=== PATIENT | male | born 1985 | race Hispanic/Latino ===

== ENCOUNTER 2017-09-09 23:53 | Inpatient (IN) | payer SELFPAY ==
[2017-09-10] MEDS ORDERED: NA CHLORIDE 0.9% 1,000 ML ONE ×2 (00:53→02:31)
[2017-09-10] MEDS ORDERED: ONDANSETRON 4 MG/2 ML VIAL ONE (00:53)
[2017-09-10] MEDS ORDERED: KETOROLAC 30 MG/ML INJ ONE (00:53)
[2017-09-10 01:16] LABS: Urine Blood 1+ (NEG); Urine Glucose NEGATIVE (NEG); Urine Protein NEGATIVE (NEG)
[2017-09-10 01:19] LABS: Absolute Monocytes 1.3 K/uL (0.1-1.3); Absolute Neutrophil 16.3 K/uL (1.8-8.0); Basophils % 0.1 % (0-1.3); Eosinophils % 0.2 % (0-4.4); Hematocrit 40.9 % (39.6-49.0); Lymphocytes % 5.6 % (15.3-44.8); MCH 31.9 pg (27.0-35.0); MCV 91.3 fL (80-100); MPV 9.6 fL (7.6-11.3); Monocytes % 7.2 % (3.3-12.3); RBC Red Blood Cell Count 4.48 M/uL (4.33-5.43)
[2017-09-10 01:26] LABS: Urine Bacteria <20 /HPF (NONE SEEN); Urine Culture Reflex Order NOT NEEDED
[2017-09-10 01:34] LABS: Albumin 3.9 g/dL (3.4-5.0); Bilirubin Direct 0.1 mg/dL (0-0.2); Bilirubin Total 0.7 mg/dL (0.2-1.0); Potassium 3.5 mmol/L (3.5-5.1); Protein, Total 7.7 g/dL (6.4-8.2)
[2017-09-10 01:42] LABS: Blood Morphology Comment NOT SEEN (NOT SEEN); Platelet Estimate ADEQ
--- NOTE | 2017-09-10 02:22 | ER ---
Nurse's Notes [facility] Name: Doug Coronel Age: 32 yrs Sex: Male : 1985 Arrival Date: 09/09/2017 Time: 23:54 Bed 25 Private MD: Diagnosis: Diverticular disease of large intestine without perforation or abscess Presentation: 09/10 00:09 Presenting complaint: Patient states: he started having left lower abdominal pain bb yesterday but pain has gotten worse since this morning he has vomited x 3 today, pain is intermittent and is cramping denies dysuria, denies fever, denies diarrhea. Transition of care: patient was not received from another setting of care. Onset of symptoms was September 08, 2017. Risk Assessment: Do you want to hurt yourself or someone else? Patient reports no desire to harm self or others. Initial Sepsis Screen: Does the patient meet any 2 criteria? No. Patient's initial sepsis screen is negative. Does the patient have a suspected source of infection? No. Patient's initial sepsis screen is negative. Care prior to arrival: None. 00:09 Method Of Arrival: Ambulatory bb 00:09 Acuity: YOLI 3 bb Historical: - Allergies: 00:11 No Known Allergies; bb - Home Meds: 00:11 None [Active]; bb - PMHx: 00:11 None; bb - PSHx: 00:11 None; bb - Immunization history:: Adult Immunizations up to date. - Social history:: Smoking status: Patient uses tobacco products, smokes one-half pack cigarettes per day, Patient uses alcohol, occasionally. Patient/guardian denies using street drugs. - Ebola Screening: : No symptoms or risks identified at this time. Screenin:11 Abuse screen: Denies threats or abuse. Nutritional screening: No deficits noted. tl3 Tuberculosis screening: No symptoms or risk factors identified. Fall Risk None identified. Assessment: 00:09 General: Appears uncomfortable, well groomed, well developed, well nourished, Behavior tl3 is calm, cooperative, appropriate for age. Pain: Complains of pain in left upper quadrant and left lower quadrant Pain currently is 9 out of 10 on a pain scale. Neuro: Level of Consciousness is awake, alert, obeys commands, Oriented to person, place, time, situation, Appropriate for age. Cardiovascular: Patient's skin is warm and dry. Respiratory: Airway is patent Respiratory effort is even, unlabored, Respiratory pattern is regular, symmetrical. GI: Bowel sounds present X 4 quads. Abd is soft Abdomen is tender to palpation in left lower quadrant. GI: Reports vomiting, since this am 3 times. : Urine is clear. EENT: No signs and/or symptoms were reported regarding the EENT system. Derm: No signs and/or symptoms reported regarding the dermatologic system. Musculoskeletal: No signs and/or symptoms reported regarding the musculoskeletal system. 02:30 Reassessment: Patient is alert, oriented x 3, equal unlabored respirations, skin bb warm/dry/pink. IV site intact, patent. 03:46 Reassessment: pt appears to be sleeping, eyes closed, resp unlabored, IV site intact, bb patent with fluids infusing. Awaiting admission orders. Family at bedside. Vital Signs: 00:11 BP 139 / 86; Pulse 104; Resp 16 S; Temp 98.6(O); Pulse Ox 99% on R/A; Weight 86.18 kg bb (R); Height 5 ft. 39 in. (251.46 cm) (R); 00:11 BP 139 / 86; Pulse 102; Resp 18; Temp 98.6; Pulse Ox 99% on R/A; tl3 03:00 BP 130 / 79; Pulse 95; Resp 18; Pulse Ox 100% on R/A; Pain 0/10; mg2 00:11 Body Mass Index 13.63 (86.18 kg, 251.46 cm) bb ED Course: 09/09 23:54 Patient arrived in ED. ds1 09/10 00:09 Mitali Aden, RN is Primary Nurse. tl3 00:11 Triage completed. bb 00:11 Arm band placed on Patient placed in an exam room, on a stretcher, on pulse oximetry. bb Family accompanied patient. 00:11 Patient has correct armband on for positive identification. Bed in low position. Call tl3 light in reach. Side rails up X 1. Adult w/ patient. Pulse ox on. NIBP on. 00:11 No provider procedures requiring assistance completed. tl3 00:11 Urine collected: clean catch specimen, clear. tl3 00:27 Edison Walter MD is Attending Physician. gs 00:55 Inserted saline lock: 20 gauge in left antecubital area, using aseptic technique. Blood mg2 collected. 01:[address] via wheelchair. kw1 02:04 CT completed. Patient tolerated procedure well. Patient moved back from CT. kw1 02:06 CT Stone Protocol In Process Unspecified. EDMI 02:20 Jessee Cristina MD is Hospitalizing Provider. gs 02:35 First set of blood cultures drawn R AC. Second set of blood cultures drawn L AC. bb 03:00 Patient admitted, IV remains in place. mg2 Administered Medications: 00:54 Drug: Zofran 4 mg Route: IVP; Site: left antecubital; mg2 01:44 Follow up: Response: No adverse reaction; Nausea is decreased mg2 00:54 Drug: TORadol 15 mg Route: IVP; Site: left antecubital; mg2 01:43 Follow up: Response: No adverse reaction; Marked relief of symptoms mg2 00:55 Drug: NS 0.9% 1000 ml Route: IV; Rate: 1 bolus; Site: left antecubital; mg2 01:44 Follow up: Response: No adverse reaction; IV Status: Completed infusion mg2 02:44 Drug: ceFAZolin 2 grams Route: IVPB; Infused Over: 30 mins; Site: left antecubital; mg2 02:59 Follow up: IV Status: Infusion continued upon admission mg2 02:44 Drug: NS 0.9% 1000 ml Route: IV; Rate: 125 ml/hr; Site: left antecubital; mg2 02:58 Follow up: IV Status: Infusion continued upon admission mg2 Outcome: 02:22 Decision to Hospitalize by Provider. gs 02:[address] [facility] accompanied by [facility], via wheelchair, room 426, with chart, Report mg2 called to Nurse Lulu 02:59 Condition: stable 02:59 Instructed on the need for admit. 04:12 Patient left the ED. bb Signatures: Dispatcher [employer] EDMI Marlyn Tsang ds1 Feli Pugh RN RN bb Edison Walter MD MD Carolina Richard kw1 Mitali Aden RN RN tl3 Alo Vidal RN RN mg2
--- NOTE | 2017-09-10 02:22 | EDPHYS ---
Physician Documentation [facility] Name: Doug Coronel Age: 32 yrs Sex: Male : 1985 Arrival Date: 09/09/2017 Time: 23:54 Bed 25 Private MD: ED Physician Edison Walter HPI: 09/10 02:17 This 32 yrs old Male presents to ER via Ambulatory with complaints of gs Abdominal Pain. 02:17 The patient presents with abdominal pain in the left lower quadrant. Onset: The gs symptoms/episode began/occurred yesterday. The symptoms do not radiate. Associated signs and symptoms: Pertinent positives: nausea and vomiting, Pertinent negatives: fever. The symptoms are described as crampy. Modifying factors: The symptoms are alleviated by nothing, the symptoms are aggravated by nothing. Severity of pain: At its worst the pain was moderate in the emergency department the pain is unchanged. The patient has not experienced similar symptoms in the past. Historical: - Allergies: 00:11 No Known Allergies; bb - Home Meds: 00:11 None [Active]; bb - PMHx: 00:11 None; bb - PSHx: 00:11 None; bb - Immunization history:: Adult Immunizations up to date. - Social history:: Smoking status: Patient uses tobacco products, smokes one-half pack cigarettes per day, Patient uses alcohol, occasionally. Patient/guardian denies using street drugs. - Ebola Screening: : No symptoms or risks identified at this time. ROS: 02:17 All other systems are negative. gs Exam: 02:17 Head/Face: Normocephalic, atraumatic. Eyes: Pupils equal round and reactive to light, gs extra-ocular motions intact. Lids and lashes normal. Conjunctiva and sclera are non-icteric and not injected. Cornea within normal limits. Periorbital areas with no swelling, redness, or edema. ENT: Nares patent. No nasal discharge, no septal abnormalities noted. Tympanic membranes are normal and external auditory canals are clear. Oropharynx with no redness, swelling, or masses, exudates, or evidence of obstruction, uvula midline. Mucous membranes moist. Neck: Trachea midline, no thyromegaly or masses palpated, and no cervical lymphadenopathy. Supple, full range of motion without nuchal rigidity, or vertebral point tenderness. No Meningismus. Chest/axilla: Normal chest wall appearance and motion. Nontender with no deformity. No lesions are appreciated. 02:17 Respiratory: Lungs have equal breath sounds bilaterally, clear to auscultation and percussion. No rales, rhonchi or wheezes noted. No increased work of breathing, no retractions or nasal flaring. Back: No spinal tenderness. No costovertebral tenderness. Full range of motion. Skin: Warm, dry with normal turgor. Normal color with no rashes, no lesions, and no evidence of cellulitis. MS/ Extremity: Pulses equal, no cyanosis. Neurovascular intact. Full, normal range of motion. Neuro: Awake and alert, GCS 15, oriented to person, place, time, and situation. Cranial nerves II-XII grossly intact. Motor strength 5/5 in all extremities. Sensory grossly intact. Cerebellar exam normal. Normal gait. 02:17 Constitutional: The patient appears alert, awake. 02:17 Cardiovascular: Rate: tachycardic, Rhythm: regular, Pulses: no pulse deficits are appreciated. 02:17 Abdomen/GI: Palpation: moderate abdominal tenderness, in the left lower quadrant. Vital Signs: 00:11 BP 139 / 86; Pulse 104; Resp 16 S; Temp 98.6(O); Pulse Ox 99% on R/A; Weight 86.18 kg bb (R); Height 5 ft. 39 in. (251.46 cm) (R); 00:11 BP 139 / 86; Pulse 102; Resp 18; Temp 98.6; Pulse Ox 99% on R/A; tl3 03:00 BP 130 / 79; Pulse 95; Resp 18; Pulse Ox 100% on R/A; Pain 0/10; mg2 00:11 Body Mass Index 13.63 (86.18 kg, 251.46 cm) bb MDM: 00:43 Patient medically screened. gs 02:17 Differential diagnosis: bowel obstruction, diverticulitis, non-specific abd pain, gs pancreatitis. Data reviewed: vital signs, nurses notes. Response to treatment: the patient's symptoms have markedly improved after treatment, and as a result, I will admit patient. 09/10 00:40 Order name: Urine Dipstick--Ancillary (enter results); Complete Time: 02:11 rg2 09/10 00:44 Order name: Basic Metabolic Panel; Complete Time: 02:11 09/10 00:44 Order name: CBC with Diff; Complete Time: 02:11 09/10 00:44 Order name: Creatinine for Radiology; Complete Time: 02:11 09/10 00:44 Order name: Hepatic Function; Complete Time: 02:11 09/10 00:44 Order name: Lipase; Complete Time: 02:11 09/10 00:44 Order name: Urine Microscopic Only; Complete Time: 02:11 09/10 00:44 Order name: CT Stone Protocol 09/10 01:22 Order name: Manual Differential; Complete Time: 02:11 EDMS 09/10 02:12 Order name: Blood Culture* 09/10 00:44 Order name: IV Saline Lock; Complete Time: 00:54 09/10 00:44 Order name: Labs collected and sent; Complete Time: 00:54 09/10 00:44 Order name: Urine Dipstick-Ancillary (obtain specimen); Complete Time: 00:54 09/10 03:01 Order name: CONS Physician Consult EDMS Administered Medications: 00:54 Drug: Zofran 4 mg Route: IVP; Site: left antecubital; mg2 01:44 Follow up: Response: No adverse reaction; Nausea is decreased mg2 00:54 Drug: TORadol 15 mg Route: IVP; Site: left antecubital; mg2 01:43 Follow up: Response: No adverse reaction; Marked relief of symptoms mg2 00:55 Drug: NS 0.9% 1000 ml Route: IV; Rate: 1 bolus; Site: left antecubital; mg2 01:44 Follow up: Response: No adverse reaction; IV Status: Completed infusion mg2 02:44 Drug: ceFAZolin 2 grams Route: IVPB; Infused Over: 30 mins; Site: left antecubital; mg2 02:59 Follow up: IV Status: Infusion continued upon admission mg2 02:44 Drug: NS 0.9% 1000 ml Route: IV; Rate: 125 ml/hr; Site: left antecubital; mg2 02:58 Follow up: IV Status: Infusion continued upon admission mg2 Disposition: 09/10/17 02:22 Hospitalization ordered by Jessee Cristina for Inpatient Admission. Preliminary diagnosis is Diverticular disease of large intestine without perforation or abscess. - Bed requested for Telemetry/MedSurg (Inpatient). - Status is Inpatient Admission. bb - Condition is Stable. - Problem is new. - Symptoms have improved. UTI on Admission? No Signatures: Dispatcher [employer] EDTX Erica Joya RN RN Feli Pugh RN RN bb Starr, Gregory, MD MD gs Gardose, Michele, RN RN mg2 Corrections: (The following items were deleted from the chart) 02: 02:22 Hospitalization Ordered by Jessee Cristina MD for Inpatient Admission. Preliminary diagnosis is Diverticular disease of large intestine without perforation or abscess. Bed requested for Telemetry/MedSurg (Inpatient). Status is Inpatient Admission. Condition is Stable. Problem is new. Symptoms have improved. UTI on Admission? No. 04:12 02:26 09/10/2017 02:22 Hospitalization Ordered by Jessee Cristina MD for Inpatient bb Admission. Preliminary diagnosis is Diverticular disease of large intestine without perforation or abscess. Bed requested for Telemetry/MedSurg (Inpatient). Status is Inpatient Admission. Condition is Stable. Problem is new. Symptoms have improved. UTI on Admission? No.
[2017-09-10] MEDS ORDERED: CEFAZOLIN SODIUM 1 GM/VIAL ONE (02:31)
[2017-09-10] MEDS ORDERED: NA CHLORIDE 0.9% 100 ML IV ONE (02:32)
--- NOTE | 2017-09-10 04:08 | P.HP ---
Certification for Inpatient Patient admitted to: Inpatient With expected LOS: >2 Midnights Practitioner: I am a practitioner with admitting privileges, knowledge of patient current condition, hospital course, and medical plan of care. Services: Services provided to patient in accordance with Admission requirements found in Title 42 Section 412.3 of the Code of Federal Regulations Patient History Date of Service: 09/10/17 Reason for admission: diverticulitis History of Present Illness: Mr Coley is a 32 years old male with quite benign past medical history, who start about 2 days ago with abdominal pain. The pain was localized on left lower quadrant, it was like cramps, 8/10 of intensity, associated with nausea and vomiting. He denied fever or chills. No diarrhea. He has never had this kind of pain in the past. He drinks on the weekends about 6 packs beers daily, he also smokes every day. In ED lab work was remarkable for leukocytosis 18.7K with bandemia 5%. CT abd/pelvis remarkable for diverticulitis with microperforation, no abscess seen. Allergies No Known Allergies Allergy (Unverified 09/10/17 02:49) Home medications list reviewed: Yes - Past Medical/Surgical History Past Medical History: Reviewed- Non-Contributory Past Surgical History: Reviewed- Non-Contributory - Family History Family History: Reviewed- Non-Contributory - Social History Smoking Status: Current every day smoker Counseled patient to stop smoking for: less than 10 minutes Smoking therapy provided: Yes Patient receptive to therapy: Yes Alcohol use: Yes CD- Drugs: No Place of Residence: Home Review of Systems 10-point ROS is otherwise unremarkable Physical Examination - Physical Exam General: Alert, In no apparent distress HEENT: Atraumatic, PERRLA, Mucous membr. moist/pink, EOMI, Sclerae nonicteric Neck: Supple, 2+ carotid pulse no bruit, No LAD, Without JVD or thyroid abnormality Respiratory: Clear to auscultation bilaterally, Normal air movement Cardiovascular: Regular rate/rhythm, Normal S1 S2 Gastrointestinal: Hypoactive, Distended, Tenderness (LLQ to palpation) Musculoskeletal: No tenderness Integumentary: No rashes Neurological: Normal speech, Normal strength at 5/5 x4 extr, Normal tone, Normal affect Lymphatics: No axilla or inguinal lymphadenopathy - Studies Laboratory Data (last 24 hrs) 09/10/17 00:50: Creatinine 1.00 09/10/17 00:50: WBC 18.7 H, Hgb 14.3, Hct 40.9, Plt Count 243 09/10/17 00:50: Sodium 139, Potassium 3.5, BUN 14, Creatinine 1.00, Glucose 121 H, Total Bilirubin 0.7, AST 26, ALT 89 H, Alkaline Phosphatase 78, Lipase 118 Assessment and Plan - Problems (Diagnosis) (1) Acute diverticulitis Current Visit: Yes Status: Acute (2) Alcohol abuse Current Visit: Yes Status: Acute (3) Tobacco abuse Current Visit: Yes Status: Acute - Plan The patient will be admitted to the hospital due to acute diverticulitis, it is complicated with microperforation. Will start IV Cipro and Flagyl. Will consult Dr Nuno for evaluation and recommendations. - Advance Directives Does patient have a Living Will: No Does patient have a Durable POA for Healthcare: No - Code Status/Comfort Care Code Status Assessed: Yes Code Status: Full Code
[2017-09-10] MEDS ORDERED: ACETAMINOPHEN 500 MG TAB PO PRN (04:22)
[2017-09-10] MEDS ORDERED: ONDANSETRON 4 MG/2 ML VIAL IV PRN (04:22)
[2017-09-10] MEDS: NA CHLORIDE 0.9% 1,000 ML IV SCH ×2 (04:22→16:11)
[2017-09-10] MEDS ORDERED: Morphine 2 MG/2 ML SYR IV PRN (04:22)
[2017-09-10 04:42] VITALS: BMI 34.7
[2017-09-10] MEDS: CIPROFLOXACIN 400mg IV 400 MG/200 ML BAG IV SCH ×3 (05:29→20:45)
[2017-09-10] MEDS: METRONIDAZOLE 500mg IVPB 500 MG/100 ML BAG IV SCH ×3 (05:29→16:11)
[2017-09-10] MEDS ORDERED: KCL 20 MEQ/100 mL IVPB 20 MEQ/100 ML BAG IV SCH (07:00)
[2017-09-10] MEDS: MORPHINE 4 MG/ML SYR IV PRN ×2 (07:38→20:46)
--- NOTE | 2017-09-10 08:21 | RAD REPORT ---
EXAM DESCRIPTION: CT - Stone Protocol - 09/10/2017 4:41 am CLINICAL HISTORY: Flank pain. ABD PAIN COMPARISON: No comparisons TECHNIQUE: Axial images were obtained without oral or IV contrast. Lack of contrast limits solid org an and vascular assessment. The [id number] spans the entirety of the system partially obscuring uppermost abdomen and lung bases. Coronal reformatted images were obtained and reviewed. All CT scans are performed using dose optimization technique as appropriate and may include automated exposure control or mA/KV adjustment according to patient size. FINDINGS: The lower lung allred are clear. Advanced fatty liver. Spleen is normal. The pancreas and adrenal glands are normal. No pathologic lym phadenopathy in the abdomen or pelvis. No urinary tract stones or obstructive uropathy. 8 cm length of the sigmoid colon shows moderate pericolonic inflammatory changes. Several diverticula are present in the region. Tiny extraluminal air collections are seen in the mesocolon surrounding t his region of the sigmoid colon. No abscess. Normal appendix noted.No bowel obstruction or significan t free intraperitoneal air. No fracture or aggressive marrow lesion. IMPRESSION: 8 cm length of sigmoid colon shows [id number] acute inflammatory changes most comp atible with acute diverticulitis. No evidence of peridiverticular abscess. Prominent fatty liver.
[2017-09-10] MEDS: NICOTINE 21 MG/PAT TD SCH (08:45)
--- NOTE | 2017-09-10 12:08 | CON ---
Date of Consultation: 09/10/2017 Brief History Of Present Illness: The patient is a 32-year-old male, who presents with appr oximately 1-day history of suprapubic and now left lower quadrant abdominal pain. He states that the initial pain began almost 2 days ago with very mild achiness and crampiness, but got significantly w orse yesterday. He did not have any new food exposures. No sick contacts. No recent travel. He lopez s had no trauma to the area. He states the pain became more crampy, 8/10 in intensity, associated wi th some nausea and vomiting. No fever, no chills. No diarrhea. He had normal bowel function. Roosevelt lemus had a similar episode before in the past. He drinks a 6 pack of beer on the weekends and he smokes approximately a pack a day for 15 years. His pain os significantly improved at this time as compare d with his admission to the emergency room. Past Medical History: Negative. Past Surgical History: He has had an abscess drainage of the perineum. Allergies: NO KNOWN DRUG ALLERGIES. Medications: None. Social History: Six pack of beer on the weekend per da. Smoking, [id number] history of cigarettes . He has used recreational drugs including cocaine and marijuana, but quit 2 years ago and has not h ad a recreational drugs since then. He works in a machine shop. Review of Systems: A 10-point review of systems other than HPI denies. Physical Examination: Vital Signs: At the time of my examination, his BMI was approximately 34. Blood pressure was 120/58 , pulse is 101, respiratory rate 20, and temperature 97.5. General: He is awake, alert, and oriented. Psychiatric: He is appropriate and conversive. HEENT: Normocephalic. Hiss sclerae anicteric. Mucous membranes are moist. Oropharynx clear. Neck: Supple. No JVD. Chest: Normal expansion and excursion. Cardiovascular: Regular rate and rhythm. During my exam it is approximately 92. Abdomen: Soft. Positive left lower quadrant tenderness to palpation. No focal peritonitis. No joe ound. No guarding. Mild suprapubic tenderness to palpation as well. Extremities: No clubbing, cyanosis, edema. Skin: Warm and dry. Laboratory Data: Reveals a white blood cell count of 18.7, hemoglobin is 14.3, hematocrit of 40.9, p latelet count 243, and neutrophils are 86.9%. His sodium was 139, potassium 3.5, chloride 107, carbo n dioxide 25, BUN 14, creatinine 1.0, glucose 121, lactic acid 1.9. Total bilirubin 0.7, direct comp onent 0.1. AST 26, ALT 89, alkaline phosphatase is 78, lipase is 118. The UA shows 1+ blood and 5-1 0 red blood cells only, otherwise essentially negative. He had a CT scan performed of the abdomen an d pelvis. The official dictation is an 8 cm length of sigmoid colon shows moderate pericolonic infla mmatory changes. Several diverticula are present in this region. Tiny extraluminal air collections are seen in the mesocolon surrounding this region of the sigmoid colon. No abscess. Normal appendix is noted. No bowel obstruction or significant free intraperitoneal air. He has a prominent fatty l iver. Assessment And Plan: This is a 32-year-old male, who presents with acute diverticulitis with micrope rforation. 1.IV fluid hydration. 2.May start clear liquid diet at this time. 3.Antibiotic coverage, Levaquin, Flagyl recommended. 4.Serial abdominal exams. 5.I explained the risks, benefits, and alternatives of operative versus nonoperative management. At this time, we will proceed with nonoperative management including, but not limited to bleeding, infe ction, damage to surrounding tissue, need for further operation or procedures. The patient agrees to proceed as indicated. Thank you for this interesting consultation. KATHY/JADEN Voice ID: [id number] Report ID: [id number]
[2017-09-11] MEDS: METRONIDAZOLE 500mg IVPB 500 MG/100 ML BAG IV SCH ×2 (00:06→09:22)
[2017-09-11] MEDS: NA CHLORIDE 0.9% 1,000 ML IV SCH ×3 (00:22→10:22)
[2017-09-11] MEDS: MORPHINE 4 MG/ML SYR IV PRN (03:16)
[2017-09-11 04:35] LABS: Absolute Lymphocytes (CBC) 1.4 K/uL (0.7-4.9); Absolute Monocytes 0.8 K/uL (0.1-1.3); Absolute Neutrophil 9.5 K/uL (1.8-8.0); Basophils % 0.2 % (0-1.3); Eosinophils % 0.4 % (0-4.4); Hematocrit 39.5 % (39.6-49.0); Lymphocytes % 12.3 % (15.3-44.8); MCH 31.7 pg (27.0-35.0); MCV 92.5 fL (80-100); MPV 9.5 fL (7.6-11.3); Monocytes % 6.7 % (3.3-12.3); RBC Red Blood Cell Count 4.27 M/uL (4.33-5.43)
[2017-09-11 04:39] VITALS: TEMP 97.2
[2017-09-11 04:51] LABS: BUN Blood Urea Nitrogen 7 mg/dL (7-18); Bicarbonate 24 mmol/L (21-32); Glucose Level 99 mg/dL (74-106); Magnesium 2.2 mg/dL (1.8-2.4); Potassium 3.6 mmol/L (3.5-5.1); Sodium Level 141 mmol/L (136-145)
[2017-09-11] MEDS ORDERED: POTASSIUM 25 MEQ EFFERV TAB PO ONE (05:30)
[2017-09-11] MEDS ORDERED: TRAMADOL HCL 50 MG TAB PO PRN (07:19)
[2017-09-11] MEDS ORDERED: HYDROCODONE/APAP 7.5/325 MG TAB PO PRN (07:19)
[2017-09-11] MEDS: NICOTINE 21 MG/PAT TD SCH ×2 (09:00→09:24)
[2017-09-11] MEDS: CIPROFLOXACIN 400mg IV 400 MG/200 ML BAG IV SCH (09:22)
[2017-09-11 11:43] VITALS: O2SAT 95
--- NOTE | 2017-09-11 15:35 | P.DS ---
Admission Date: 09/10/17 Discharge Date: 09/11/17 Primary Care Provider: none Disposition: ROUTINE DISCHARGE Discharge Condition: GOOD Reason for Admission: diverticulitis Consultations: Surgery-Dr. Nuno Procedures: CT scan: COMPARISON: No comparisons TECHNIQUE: Axial images were obtained without oral or IV contrast. Lack of contrast limits solid organ and vascular assessment. The [id number] spans the entirety of the system partially obscuring uppermost abdomen and lung bases. Coronal reformatted images were obtained and reviewed. All CT scans are performed using dose optimization technique as appropriate and may include automated exposure control or mA/KV adjustment according to patient size. FINDINGS: The lower lung allred are clear. Advanced fatty liver. Spleen is normal. The pancreas and adrenal glands are normal. No pathologic lymphadenopathy in the abdomen or pelvis. No urinary tract stones or obstructive uropathy. 8 cm length of the sigmoid colon shows moderate pericolonic inflammatory changes. Several diverticula are present in the region. Tiny extraluminal air collections are seen in the mesocolon surrounding this region of the sigmoid colon. No abscess. Normal appendix noted.No bowel obstruction or significant free intraperitoneal air. No fracture or aggressive marrow lesion. IMPRESSION: 8 cm length of sigmoid colon shows [id number] acute inflammatory changes most compatible with acute diverticulitis. No evidence of peridiverticular abscess. Prominent fatty liver. - Problems (1) Acute diverticulitis Onset Date: 09/10/17 Current Visit: Yes Status: Acute (2) Alcohol abuse Onset Date: 09/10/17 Current Visit: Yes Status: Acute (3) Tobacco abuse Onset Date: 09/10/17 Current Visit: Yes Status: Acute (4) Obesity Current Visit: Yes Status: Chronic Qualifiers: Obesity type: due to excess calories Obesity classification: adult class 1 (BMI 30 - 34.9) Serious obesity comorbidity presence: with serious comorbidity Body mass index: BMI 34.0-34.9 Qualified Code(s): E66.09 - Other obesity due to excess calories; Z68.34 - Body mass index (BMI) 34.0-34.9, adult (5) Fatty liver Current Visit: Yes Status: Chronic Brief History of Present Illness: 32-year-old male presented emergency room with abdominal pain. CT scan revealed sigmoid diverticulitis with microperforation. The patient was admitted for treatment. Hospital Course: During the course of his stay patient found to have sigmoid diverticulitis with micro perforation. His condition improved. Patient was without any significant abdominal pain, nausea, vomiting at discharge. He was able tolerate his diet. He was able to passed stool. Postsurgical admission was recommended. At discharge she will continue with Cipro 500 mg twice daily and Flagyl 100 mg 1 pill 3 times a day for 10 days. Patient will also be provided tramadol 50 mg 1 pill 3 times a day as needed for pain. Patient continue with a soft GI diet. Recommendations for the patient follow up with surgery in 2-4 weeks. Patient will require colonoscopy in 4-6 weeks. Education on diverticulitis was provided. CT scan also revealed fatty liver. Lifestyle education will be provided. Education on fatty liver will be provided. This can be followed up with his PCP. Patient with history of alcohol and tobacco abuse. Cessation recommended. Vital Signs/Physical Exam: Temp Pulse Resp BP Pulse Ox 97.2 F 91 H 18 110/67 97 09/11/17 12:00 09/11/17 12:00 09/11/17 12:00 09/11/17 12:00 09/11/17 12:00 General: Alert, In no apparent distress, Oriented x3, Cooperative HEENT: Atraumatic Neck: Supple Respiratory: Clear to auscultation bilaterally, Normal air movement Cardiovascular: Normal pulses, Regular rate/rhythm Gastrointestinal: Normal bowel sounds, Soft and benign, Non-distended, No tenderness, No masses, No rebound, No guarding Musculoskeletal: No erythema, No tenderness, No warmth Integumentary: No tenderness/swelling, No erythema, No warmth, No cyanosis Neurological: Normal speech, Normal strength at 5/5 x4 extr, Normal tone, Normal affect Laboratory Data at Discharge: WBC 11.8 K/uL (4.3-10.9) H D 09/11/17 04:01 Hgb 13.5 g/dL (13.6-17.9) L 09/11/17 04:01 Hct 39.5 % (39.6-49.0) L 09/11/17 04:01 Plt Count 217 K/uL (152-406) 09/11/17 04:01 Sodium 141 mmol/L (136-145) 09/11/17 04:01 Potassium 3.6 mmol/L (3.5-5.1) 09/11/17 04:01 BUN 7 mg/dL (7-18) 09/11/17 04:01 Creatinine 0.80 mg/dL (0.55-1.3) 09/11/17 04:01 Glucose 99 mg/dL (74-106) 09/11/17 04:01 Magnesium 2.2 mg/dL (1.8-2.4) 09/11/17 04:01 Total Bilirubin 0.7 mg/dL (0.2-1.0) 09/10/17 00:50 AST 26 U/L (15-37) 09/10/17 00:50 ALT 89 U/L (12-78) H 09/10/17 00:50 Alkaline Phosphatase 78 U/L (45-117) 09/10/17 00:50 Lipase 118 U/L (73-393) 09/10/17 00:50 Home Medications: Ciprofloxacin HCl [Cipro 500 MG Tablet] 500 mg PO BID #20 tab 09/11/17 metroNIDAZOLE [Flagyl] 500 mg PO Q8H #30 tablet 09/11/17 traMADol HCL [Ultram*] 50 mg PO TID PRN #15 tab 09/11/17 New Medications: Ciprofloxacin HCl [Cipro 500 MG Tablet] 500 mg PO BID #20 tab metroNIDAZOLE [Flagyl] 500 mg PO Q8H #30 tablet traMADol HCL [Ultram*] 50 mg PO TID PRN #15 tab PRN Reason: Pain Mild Patient Discharge Instructions: 1. Patient will need to establish care with a PCP in the area to follow up this hospitalization. 2. Patient found to have sigmoid diverticulitis with microperforation. Patient did well in the course of his stay. Patient was evaluated by surgery. No surgical intervention needed. At discharge patient will continue with Cipro 500 mg 1 pill twice daily and Flagyl 500 mg 1 pill 3 times a day for 10 days. Tramadol 50 mg 1 pill 3 times a day as needed for pain will also be provided. Recommendation is for the patient follow up with surgery in 1-2 weeks to follow up this hospitalization. Recommendation for colonoscopy in 4-6 weeks. 3. Alcohol and Tobacco cessation recommended. 4. Patient found to have fatty liver. Education on fatty liver will be provided. This can be followed up as an outpatient. Diet: GI soft Activity: Ad kimberly Time spent managing pt's care (in minutes): 55
[2017-09-11 16:28] VITALS: BP 112/65
[2017-09-12] MEDS ORDERED: PANTOPRAZOLE 40MG TABLET PO SCH (06:30)
== END 2017-09-11 16:16 | disposition home or self-care (01) | DRG 392 ==
LOC: ER 23:53 → ERHOLD 09-10 03:03 → 4TH 09-10 04:06
PROVIDERS: ADMIT Internal Medicine; ATTEND Family Medicine
DX: K57.20 Diverticulitis of large intestine with perforation and abscess without bleeding (principal); F10.10 Alcohol abuse, uncomplicated; F17.210 Nicotine dependence, cigarettes, uncomplicated; K76.0 Fatty (change of) liver, not elsewhere classified; E66.09 Other obesity due to excess calories; Z68.34 Body mass index [BMI] 34.0-34.9, adult
CPT/HCPCS: 36415; 74176; 76377; 80048; 80076; 81003; 81015; 83605; 83690; 83735; 85025; 87040; 96361; 96374; 96375; 99285; J0690; J0744; J2270; J2405; J7030